=== PATIENT | female | born 1975 | race Caucasian/White ===

== ENCOUNTER 2016-09-24 10:44 | Emergency (ER) | payer OTHER ==
[2016-09-24 11:21] LABS: BASO % 0.2 % (0.1-1.2); EOS # 0.2 10_X3_uL (0.0-0.4); EOS % 1.2 % (0.7-5.8); GRAN % 80.9 % (34.0-71.1); HEMOGLOBIN 12.3 g/dL (11.2-15.7); LYMPH # 1.7 10_X3_uL (1.2-3.7); LYMPH % 12.6 % (19.3-51.7); MEAN CORPUSCULAR HEMOGLOBIN 33.7 pg (27.0-33.0); MEAN CORPUSCULAR HGB CONC 34.2 g/dL (32.0-36.0); MEAN CORPUSCULAR VOLUME 98.6 fL (79-95); MONO # 0.7 10_X3_uL (0.2-0.9); MONO % 5.1 % (4.7-12.5); PLATELET COUNT 238 x10_3/uL (182-369); RED BLOOD COUNT 3.65 x10_6/uL (3.9-5.2); RED CELL DISTRIBUTION WIDTH 13.2 % (11.7-14.4); WHITE BLOOD COUNT 13.7 x10_3/uL (4.0-10.0)
[2016-09-24 11:33] LABS: ALBUMIN 3.9 gm/dL (3.4-5.0); ALKALINE PHOSPHATASE 126 U/L (50-136); ALT/SGPT 23 U/L (3.5-33.9); AST/SGOT 26 U/L (7.04-26.96); BILIRUBIN,TOTAL 0.75 mg/dL (0.0-1.0); BLOOD UREA NITROGEN 9 mg/dL (7-18); CARBON DIOXIDE 21 mmol/L (21-32); CREATINE KINASE 110 U/L (21-215); CREATININE 0.6 mg/dL (0.6-1.3); GLUCOSE,RANDOM 78 mg/dL (70-99); POTASSIUM 3.8 mmol/L (3.5-5.1); SODIUM 136 mmol/L (136-145)
[2016-09-24 13:27] LABS: URINE BILIRUBIN NEGATIVE (NEGATIVE); URINE BLOOD TRACE (NEGATIVE); URINE GLUCOSE (UA) NORMAL (NORMAL); URINE KETONE 1+ (NEGATIVE); URINE LEUKOCYTE ESTERASE NEGATIVE (NEGATIVE); URINE NITRATE NEGATIVE (NEGATIVE); URINE PROTEIN NEGATIVE (NEGATIVE); UROBILINOGEN NORMAL mg/dL (<1.0)
[2016-09-24 13:44] LABS: URINE RBC 0-5 /[HPF] (0-2)
[2016-09-24 13:45] LABS: URINE BACTERIA TRACE (NONE SEEN); URINE SQUAMOUS EPITHELIAL CELL 0-10 /[HPF] (NONE SEEN); URINE WBC 0-5 /[HPF] (0-5)
[2016-09-24 13:46] LABS: URINE YEAST FEW (NONE SEEN)
== END 2016-09-24 18:18 | disposition home or self-care (01) ==
LOC: ER 10:44
PROVIDERS: Emergency Medicine
DX: J18.9 Pneumonia, unspecified organism (principal); T65.91XA Toxic effect of unspecified substance, accidental (unintentional), initial encounter; R07.9 Chest pain, unspecified; F17.210 Nicotine dependence, cigarettes, uncomplicated
CPT/HCPCS: 36415; 51702; 70450; 71010; 71250; 80053; 80307; 81001; 82550; 82553; 84703; 85025; 87086; 93005; 96360; 96361; 96372; 99070; 99285-25